=== PATIENT | male | born 1985 | race Hispanic/Latino ===

== ENCOUNTER 2023-01-26 22:42 | Emergency (ER) | payer OTHER ==
[~2023-01-26] VITALS: Ht 180.3 cm; Wt 121.6 kg
[2023-01-27] MEDS ORDERED: LACTATED RINGER'S 1,000 ML ONE (00:12)
[2023-01-27] MEDS ORDERED: LACTATED RINGER'S 1,000 ML IV ONE (00:15)
[2023-01-27 01:22] VITALS: BP 156/98; PULSE 103; RESP 18; TEMP 99; O2SAT 96
== END 2023-01-27 01:22 | disposition home or self-care (01) ==
LOC: FSED 22:46
DX: I47.10 Supraventricular tachycardia, unspecified (principal); I10 Essential (primary) hypertension; R94.31 Abnormal electrocardiogram [ECG] [EKG]
CPT/HCPCS: 71046; 80048; 85025; 93005; 99283; J7121